=== PATIENT | male | born 1940 | race Caucasian/White ===

== ENCOUNTER 2016-08-21 11:06 | Inpatient (IN) | payer MEDICARE ==
[~2016-08-21] VITALS: Ht 177.8 cm; Wt 98.9 kg
[~2016-08-21 11:06] MED LIST: ACET325T9 PO; ALBU2.5V14 NEB; ALLO300T; AMIO100T4 PO; ASCO500T2 PO; ASPI81TA2 PO; ATOR20TA; AZIT250T PO; CHOL2000 PO; CHOL500021 PO; CIPR500T94 PO; Calcium; Dextrose 50 % In Water IV; FERR-26 PO; FLUT1DIS5; FURO-68 PO; FURO20TA3 PO; FURO40TA4; GLIM2TAB2 PO; GUAI600T38 PO; Guaifenesin/Dextromethorphan PO; INSU100I17 SQ; IPRA14.7; IPRA3AMP23; IRON1TAB PO; Ipratropium/Albuterol Sulfate NEB; LEVO75CA; LOSA25TA PO; METF100010; METF10002 PO; METF500T25; MONT10TA9 PO; MULT-246 PO; Morphine Sulfate SL; NEBI5TAB2; NEBI5TAB2 PO; OMEP20TA PO; OMEP40CA5; PANT40TA3 PO; POTA10TA5 PO; PRED-220 PO; PRED2.5T PO; PRED20TA PO; PRED50TA PO; PRED5TAB; RIVA15TA; ROFL500T; SPIR25TA3
[2016-08-21 11:35] VITALS: BP 156/76
[2016-08-21] MEDS ORDERED: ONDANSETRON PF 4 MG/2 ML VIAL. IV PRN (11:45)
[2016-08-21] MEDS ORDERED: ACETAMINOPHEN 325 MG TABLET PO PRN ×2 (11:45→12:45)
[2016-08-21 11:59] LABS: BASO # 0.1 x10^3/uL (0.0-0.2); BASO % 1 % (0-3); EOS # 0.1 x10^3/uL (0.0-0.7); EOS % 1 % (0-3); HEMATOCRIT 39.8 % (39.0-53.0); HEMOGLOBIN 12.9 g/dL (13.0-17.5); LYMPH # 0.6 x10^3/uL (1.0-4.8); LYMPH % 5 % (24-48); MEAN CORPUSCULAR HEMOGLOBIN 28 pg (25-35); MEAN CORPUSCULAR HGB CONC 32 g/dL (31-37); MEAN CORPUSCULAR VOLUME 87 fL (79-100); MONO # 0.6 x10^3/uL (0.0-1.1); MONO % 5 % (0-9); NEUT # 11.4 x10^3uL (1.8-7.7); NEUT % 89 % (31-73); PLATELET COUNT 190 x10^3/uL (140-400); RED BLOOD COUNT 4.59 x10^6/uL (4.30-5.70); WHITE BLOOD COUNT 12.8 x10^3/uL (4.0-11.0)
[2016-08-21] MEDS ORDERED: CALC-98 PO (11:59)
[2016-08-21] MEDS ORDERED: ASCO10002 PO (11:59)
[2016-08-21] MEDS ORDERED: IPRATRPIUM/ALBUTEROL 0.5/2.5MG 3 ML NEBU. NEB SCH (12:00)
[2016-08-21] MEDS ORDERED: SACU1TAB PO (12:00)
[2016-08-21] MEDS ORDERED: FERR-26 PO (12:18)
[2016-08-21 12:34] LABS: ALBUMIN/GLOBULIN RATIO 0.7 (1.0-1.7); CALCIUM 9.2 mg/dL (8.5-10.1); CREATININE 1.2 mg/dL (0.7-1.3); MAGNESIUM 1.5 mg/dL (1.8-2.4); POTASSIUM 4.1 mmol/L (3.5-5.1); TOTAL BILIRUBIN 0.7 mg/dL (0.2-1.0); TOTAL PROTEIN 7.2 g/dL (6.4-8.2)
[2016-08-21] MEDS: FUROSEMIDE 40 MG/4 ML VIAL IVP SCH ×2 (12:49→19:28)
[2016-08-21 14:45] VITALS: BP 135/71
[2016-08-21] MEDS ORDERED: ALBUTEROL SULFATE 2.5 MG/3 ML NEBU. NEB PRN (15:30)
--- NOTE | 2016-08-21 16:03 | RAD ---
EXAM: Chest, 2 views. HISTORY: Shortness of breath. COMPARISON: 02/04/2016. FINDINGS: Frontal and lateral views of the chest are obtained. There is increased lower lobe predominant interstitial opacity, similar compared to the prior study. There is no consolidation, effusion or pneumothorax. There is blunting of the right costophrenic angle likely due to pleural parenchymal scarring. There is mild cardiomegaly. There is a cardiac pacemaker defibrillator in expected position.. IMPRESSION: 1. Diffuse lower lobe predominant increased interstitial opacity, similar compared to the prior study. This may be due to chronic interstitial change or interstitial infiltrate. 2. Mild cardiomegaly.
[2016-08-21] MEDS: IPRATRPIUM/ALBUTEROL 0.5/2.5MG 3 ML NEBU. NEB SCH ×2 (16:32→19:46)
--- NOTE | 2016-08-21 16:38 | HP ---
ADMIT DATE: 08/21/2016 HISTORY OF PRESENT ILLNESS: The patient is a 76-year-old male patient, who was admitted directly from the cardiology team for treatment of his community-acquired pneumonia as well as congestive heart failure exacerbation. On questioning him, he apparently has been having recurrent episode of cough, orthopnea, worsening shortness of breath on minimal exertion. He has also productive sputum with dark color sputum. He could not say whether this is yellow or green. Denied any chest pain, denied any chills, rigors or fever. He stated that he was treated by his shoe clerk with short course of Zithromax that helped to improve his symptoms; however, symptoms came back again once he stopped the antibiotic. When I examined him this morning, he looked well and was clearly in no apparent respiratory distress. On questioning him on arrival to the hospital, he stated that he has been unable to do anything, become extremely short of breath on minimal exertion. PAST MEDICAL HISTORY: Significant for paroxysmal atrial fibrillation, congestive heart failure, chronic obstructive pulmonary disease, on home oxygen at 2 liters oxygen by nasal cannula, type 2 diabetes mellitus, recurrent GI bleed, source of which is unknown. He has been on Xarelto that was discontinued. He has coronary artery disease, status post myocardial infarction, hyperlipidemia, hypertension, peptic ulcer disease, severe iron deficiency anemia, requiring multiple blood transfusions, chronic respiratory failure, hypothyroidism, nonischemic cardiomyopathy, pulmonary hypertension, gouty arthritis. PAST SURGICAL HISTORY: Significant for placement of an AICD. FAMILY HISTORY: Unremarkable. SOCIAL HISTORY: He is retired. He lives at home. He has a large extended family. He quit tobacco in 2013. He does not drink alcohol or use any recreational drugs. ALLERGIES: He is allergic to PENICILLIN, TUBERCULIN TEST and PURIFIED PROTEIN DERIVATIVES. MEDICATIONS: He is on following medications: He is on Tylenol 650 mg every 6 hours, allopurinol 300 mg once a day, ascorbic acid 1000 mg daily, aspirin 81 mg once a day, calcium carbonate with vitamin D 1 tablet daily, ferrous sulfate 325 mg p.o. b.i.d., Flonase, fluticasone/salmeterol 500/50 one puff b.i.d., glimepiride 2 mg daily, is on guaifenesin 600 mg extended release twice a day, ipratropium bromide, albuterol inhaler, Combivent 2 puffs twice a day. He is on levothyroxine sodium 75 mcg once a day, metformin 500 mg 1 tablet with dinner, metformin 1000 mg daily with breakfast, montelukast sodium Singulair 10 mg at bedtime, multivitamin 1 tablet once a day, nebivolol 2.5 mg once a day, omeprazole 40 mg daily, potassium chloride 10 mEq p.o. daily. He is on prednisone 10 mg daily, primidone 50 mg daily. He is on 25/26 mg 1 tablet twice a day. He is on DuoNeb 3 mL every 8 hours. REVIEW OF SYSTEMS: As per history of present illness. PHYSICAL EXAMINATION GENERAL: When I examined him, he was resting, slightly propped up in bed, in no apparent respiratory distress. He was somewhat flushed, but no pallor, jaundice, cyanosis or thyromegaly. No jugular venous distention. No limb edema. VITAL SIGNS: His heart rate was 80, blood pressure was 156/76, temperature was 98, respiratory rate was 28 and oxygen saturation was 94% on 3 liters of oxygen by nasal cannula. HEAD, EYES, EARS, NOSE AND THROAT: Showed normocephalic, atraumatic. NECK: Supple. HEART: Showed normal first and second heart sounds with no gallop, rub or murmur. CHEST: Clear to auscultation. He has few scattered rhonchi. I could not appreciate any crepitation. ABDOMEN: Distended, soft, nontender. No guarding or rigidity. No organomegaly. All hernial orifices intact. Bowel sounds normal. NEUROLOGIC: He was awake, alert, responding appropriately. Cranial nerves intact. EXTREMITIES: He moves extremities without difficulty, ambulates without assistance or assistive devices. LABORATORY DATA: Showed a white cell count of 12,800, hemoglobin 12.9, hematocrit 39.8, MCV 87 and platelet count of 190,000 with normal manual differential showed 89% polymorphs, 5% lymphocytes, and monocytes. Serum sodium was 144, potassium 4.1, chloride 104, bicarbonate 33, anion gap of 7, BUN 10, creatinine 1.2, estimated GFR was 59 mL per minute. His glucose was 183, calcium was 9.2, magnesium was 1.5. Total bilirubin, AST, ALT, alkaline phosphatase were normal. Total beta natriuretic peptide was 1632. Total protein was 7.2, albumin 3. He did have a chest x-ray, which showed that he has obviously cardiomegaly and AICD in place. He has also some infiltrate in his left lower lobe in the retrocardiac area. IMPRESSION: In summary, this is a 76-year-old male patient, who came in as a direct admit from his shoe clerk with acute on chronic congestive heart failure, community-acquired pneumonia and chronic obstructive pulmonary disease exacerbation. PLAN: My plan is to obviously we will start him on IV antibiotic, IV Solu-Medrol, nebulized treatment. We will continue with most of his other home medications and will consult the cardiology team to assist with management of his acute on chronic congestive heart failure. JOHNATHAN MCKEON MD DR: CRISTIANE/rhianna JOB#: [id number] / [id number]
[2016-08-21] MEDS: METFORMIN 500 MG TABLET. PO SCH (16:51)
[2016-08-21 19:34] VITALS: BP 130/84
[2016-08-21] MEDS: GUAIFENESIN ER 600 MG TABLET.ER PO SCH (20:28)
[2016-08-21] MEDS: METOPROLOL TART IMMED RELEASE 25 MG TABLET PO SCH (20:28)
[2016-08-21] MEDS: MONTELUKAST 10 MG TABLET. PO SCH (20:28)
[2016-08-21] MEDS: FERROUS SULFATE 325 MG TABLET PO SCH (20:28)
[2016-08-21] MEDS: ASPIRIN 81 MG TAB.CHEW PO SCH (20:29)
[2016-08-21] MEDS: methylPREDNISolone SOD SUCC PF 40 MG/ML VIAL. IV SCH (20:29)
[2016-08-21] MEDS: POTASSIUM CHLORIDE 10 MEQ CAPSULE.ER. PO SCH (20:29)
[2016-08-21] MEDS: CIPROFLOXACIN 400MG PREMIX 200 ML IV SCH (20:32)
[2016-08-21] MEDS: SACUBITRIL/VALSARTAN 24/26MG TABLET. PO SCH (20:33)
--- NOTE | 2016-08-21 21:07 | EKG ---
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 : 1940 Requested By: JESSY KELSEY Order Number: [id number] Reading MD: Measurements Intervals Hawks Rate: 87 P: AK: QRS: -108 QRSD: 146 T: 67 QT: 416 QTc: 501 Interpretive Statements ATRIAL FIBRILLATION VENTRICULAR PREMATURE COMPLEX(ES) ABNORMAL RIGHT SUPERIOR AXIS DEVIATION NON SPECIFIC INTRAVENTRICULAR BLOCK RVH WITH REPOLARIZATION ABNORMALITY QRS(T) CONTOUR ABNORMALITY CONSIDER ANTEROSEPTAL MYOCARDIAL DAMAGE CONSISTENT WITH INFERIOR INFARCT POSSIBLY RECENT RI6.01 Unconfirmed report Compared to ECG 02/02/2016 10:29:53 Right superior axis now present Left-axis deviation no longer present Right bundle-branch block no longer present Myocardial infarct finding still present
[2016-08-21 23:05] VITALS: BP 137/77
[2016-08-22] MEDS: methylPREDNISolone SOD SUCC PF 40 MG/ML VIAL. IV SCH ×3 (05:03→21:09)
[2016-08-22 05:06] VITALS: BP 123/80
[2016-08-22] MEDS: IPRATRPIUM/ALBUTEROL 0.5/2.5MG 3 ML NEBU. NEB SCH ×4 (05:48→21:51)
[2016-08-22 06:31] LABS: HEMOGLOBIN 13.9 g/dL (13.0-17.5); RED BLOOD COUNT 4.86 x10^6/uL (4.30-5.70); RED CELL DISTRIBUTION WIDTH 16.1 % (11.5-14.5); WHITE BLOOD COUNT 9.2 x10^3/uL (4.0-11.0)
[2016-08-22 06:44] LABS: ALBUMIN 3.2 g/dL (3.4-5.0); ALBUMIN/GLOBULIN RATIO 0.7 (1.0-1.7); CALCIUM 9.5 mg/dL (8.5-10.1); CREATININE 1.3 mg/dL (0.7-1.3); GFR 53.8; POTASSIUM 4.7 mmol/L (3.5-5.1); TOTAL BILIRUBIN 0.9 mg/dL (0.2-1.0); TOTAL PROTEIN 8.1 g/dL (6.4-8.2)
[2016-08-22] MEDS: CIPROFLOXACIN 400MG PREMIX 200 ML IV SCH ×2 (08:25→21:09)
[2016-08-22] MEDS: METFORMIN 500 MG TABLET. PO SCH ×2 (08:26→17:14)
[2016-08-22] MEDS: GLIMEPIRIDE 2 MG TABLET PO SCH (08:26)
[2016-08-22] MEDS: FUROSEMIDE 40 MG/4 ML VIAL IVP SCH ×2 (08:26→13:27)
[2016-08-22] MEDS: ALLOPURINOL 300 MG TABLET. PO SCH (08:26)
[2016-08-22] MEDS: CALCIUM CARB/VIT D3 500/200 TABLET PO SCH (08:27)
[2016-08-22] MEDS: FERROUS SULFATE 325 MG TABLET PO SCH ×2 (08:27→21:08)
[2016-08-22] MEDS: GUAIFENESIN ER 600 MG TABLET.ER PO SCH ×2 (08:27→21:05)
[2016-08-22] MEDS: METOPROLOL TART IMMED RELEASE 25 MG TABLET PO SCH (08:27)
[2016-08-22] MEDS: PANTOPRAZOLE 40 MG TABLET. PO SCH (08:27)
[2016-08-22 08:34] VITALS: BP 144/62
[2016-08-22] MEDS: SACUBITRIL/VALSARTAN 24/26MG TABLET. PO SCH ×2 (08:34→21:08)
--- NOTE | 2016-08-22 09:20 | PDOC2 ---
JESSY KELSEY [employer]OCKTA[employer]OUNGE MANAGER 08/22/16 0920: CONSULT Date of Admission DATE: 08/22/16 TIME: 09:13 Reason for Consult: CHF History of Present Illness The patient is a pleasant 76-year-old male who is well known to our service. He has history of chronic systolic and diastolic congestive heart failure due to non-ischemic dilated cardiomyopathy as well as paroxysmal atrial fibrillation , hypertension, and hypercholesterolemia. Yesterday he presented to OP clinic with progressive shortness of breath and hypertension. Over the last two months he has been progressively short of air and wheezing. Cough+ Took a Zpacks last month that helped for a few days. His weight is up nearly 30 pounds and he is +PND and orthopnea. His breathing is short at rest and with any activity. He wears his Trilogy Cpap Machine at night. He denies any chest discomfort. He denies any palpitations, lightheadedness, syncope, or lower extremity edema. He denies any nausea, vomiting, or diarrhea. PAST MEDICAL HISTORY: Non-ischemic dilated cardiomyopathy, chronic systolic and diastolic congestive heart failure with previous decompensations, hypertension, hypercholesterolemia, severe chronic obstructive pulmonary disease, on home oxygen; atrial fibrillation, paroxysmal; and history of recurrent gastrointestinal hemorrhage, source unknown. He had been on Xarelto in the past, but this had to be discontinued due to the recurrent gastrointestinal hemorrhage; iron-deficiency anemia due to the recurrent gastrointestinal hemorrhage, permanent internal cardioverter defibrillator placement, moderate pulmonary hypertension, type 2 diabetes mellitus, gouty arthritis, acquired hypothyroidism. PAST SURGICAL HISTORY: Status post internal cardioverter defibrillator placement. SOCIAL HISTORY: The patient lives at home with his . He quit smoking years ago. He denies any significant alcohol intake. FAMILY HISTORY: The patient denies any family history of premature coronary artery disease. REVIEW OF SYSTEMS: Review of 10 organ systems is as per the history of present illness, otherwise negative. ALLERGIES: Penicillin and PPD. PHYSICAL EXAMINATION: GENERAL: The patient is awake and alert. He appears to be in mild respiratory distress with trouble breathing when speaking. He appears well-nourished and appears his stated age. HEAD AND NECK: The patient is normocephalic and atraumatic. Carotid pulsations are 2/2 bilaterally without bruits. Jugular venous pressure does not appear elevated. No thyromegaly appreciated. EYES: Conjunctivae are clear. Extraocular movements are intact. There is no xanthelasma. LUNGS: Labored breathing with wheezes and coarse CARDIOVASCULAR: Regular rate and rhythm although at times irregular with a normal S1 and S2. ABDOMEN: There are normal bowel sounds and the abdomen is soft, nontender, and nondistended. EXTREMITIES: Lower extremities, there is no edema. The posterior tibial pulses are palpable bilaterally. SKIN: There is normal skin turgor. There is + pallor. MUSCULOSKELETAL: I did not appreciate scoliosis or kyphosis. NEUROLOGICAL: The patient is alert and oriented x3. Cranial nerves III through XII are grossly intact. The patient has good motor tone and strength in the upper and lower extremities bilaterally. PSYCHOLOGIC: The patient is pleasant and has normal affect. ELECTROCARDIOGRAM: Sinus rhythm with a dual-chamber pacemaker with atrial sensing and ventricular pacing. ECHOCARDIOGRAM 07/25/15 Technically difficult study. The left ventricle is normal size. Left ventricle systolic function is moderately to severely impaired. The Ejection Fraction is 30-35% with global hypokinesis. There is no significant aortic valvular stenosis. Doppler and Color Flow revealed no significant aortic regurgitation. Doppler and Color Flow revealed mild mitral regurgitation. Doppler and Color Flow revealed mild tricuspid regurgitation. The PA pressure was estimated at 33 mmHg. There is no evidence of significant pericardial effusion. ECHOCARDIOGRAM IMPRESSION (09/21/14): Borderline to mild concentric left ventricular hypertrophy. Ejection Fraction is 45%. Systolic function is mildly impaired. Mild to moderate hypokinesis in the base to mid posterior wall. Left atrium is mildly dilated. Right atrium is mildly dilated. Aortic valve is mildly sclerotic. Moderate mitral regurgitation. Mild-moderate pulmonary hypertension. PA pressure was estimated at 48 mmHg. CARDIAC CATHETERIZATION IMPRESSION (09/07/2013): No significant coronary artery disease with minor luminal irregularities. Severe Left jugular dysfunction with ejection fraction of 30%. Biventricular AICD noted. Assessment and Plan Acute on chronic - Congestive heart failure, combined systolic and diastolic, with ejection fraction of 40%, Non ischemic cardiomyopathy. On Bystolic (did not tolerate Coreg - dyspnea) and Entresto. Continue IV lasix. Pneumonia - ABx, Nebs, Steroids and oxygen supplement Coronary artery disease. Mild by catheterization in 2013. The patient is doing well without any angina. We will continue optimal medical therapy. Atrial fibrillation, with controlled rate s/p AV lester ablation and BIV/AICD placement. Pt was taken off Xarelto for severe anemia, GI losses, repeated transfusions. Continue aspirin and beta nilsa. CKD stage II - III - stable Dyspnea, multifactorial - Chronic Respiratory failure, Pneumonia, COPD, and CHF. Respiratory failure - COPD, O2 Dependent - Wearing Trilogy nightly Anemia of chronic disease - now at normal. History of Code - Ventricular tachycardia converted with AICD discharge. Continue Amiodarone Current Medications Current Medications Acetaminophen (Tylenol) 650 mg PRN Q6HRS PRN PO Headaches, Temp > 101.5F; Start 08/21/16 at 11:45; Stop 08/21/16 at 13:10; Status DC Ondansetron HCl (Zofran) 4 mg PRN Q8HRS PRN IV NAUSEA/VOMITING; Start 08/21/16 at 11:45 Albuterol/ Ipratropium (Duoneb) 3 ml RTQID NEB ; Start 08/21/16 at 12:00; Stop 08/21/16 at 16:19; Status DC Furosemide (Lasix) 40 mg BID IVP Last administered on 08/21/16 19:28; Start at 13:00; Stop 08/22/16 at 08:07; Status DC Acetaminophen (Tylenol) 650 mg PRN Q6HRS PRN PO PAIN; Start 08/21/16 at 12:45 Allopurinol (Zyloprim) 300 mg DAILY PO Last administered on 08/22/16 08:26; Start 08/22/16 at 09:00 Aspirin (Children'S Aspirin) 81 mg QHS PO Last administered on 08/21/16 20:29 ; Start 08/21/16 at 21:00 Ferrous Sulfate (Feosol) 325 mg BID PO Last administered on 08/22/16 08:27; Start 08/21/16 at 21:00 Glimepiride (Amaryl) 2 mg DAILY PO Last administered on 08/22/16 08:26; Start 08/22/16 at 09:00 Guaifenesin (Mucinex Er) 600 mg BID PO Last administered on 08/22/16 08:27; Start 08/21/16 at 21:00 Montelukast Sodium (Singulair) 10 mg QHS PO Last administered on 08/21/16 20: 28; Start 08/21/16 at 21:00 Sacubitril/ Valsartan (Entresto 24 Mg-26 Mg) 1 tab BID PO Last administered on 08/21/16 20:33; Start 08/21/16 at 21:00 Calcium/Vitamin D (Oscal D 500mg/ 200uts) 1 tab DAILY PO Last administered on 08:27; Start 08/22/16 at 09:00 Levothyroxine Sodium (Synthroid) 75 mcg 20 PO ; Start 08/22/16 at 20:00 Metformin HCl (Glucophage) 1,000 mg DAILY PO Last administered on 08/22/16 08: 26; Start 08/22/16 at 09:00 Metformin HCl (Glucophage) 500 mg DAILYBFRSUP PO Last administered on 16:51; Start 08/21/16 at 17:00 Pantoprazole Sodium (Protonix) 40 mg DAILY PO Last administered on 08/22/16 08 :27; Start 08/22/16 at 09:00 Potassium Chloride (Micro-K) 10 meq HS PO Last administered on 08/21/16 20:29 ; Start 08/21/16 at 21:00 Metoprolol Tartrate 12.5 mg 12.5 mg BID PO Last administered on 08/22/16 08:27 ; Start 08/21/16 at 21:00 Ciprofloxacin Lactate (Cipro 400mg Premix) 200 ml @ 200 mls/hr Q12HR IV Last administered on 08/22/16 08:25; Start 08/21/16 at 21:00 Methylprednisolone Sodium Succinate (Solu-Medrol 40mg Vial) 40 mg Q8HRS IV Last administered on 08/22/16 05:03; Start 08/21/16 at 22:00 Albuterol/ Ipratropium (Duoneb) 3 ml RTQID NEB Last administered on 08/22/16 05:48; Start 08/21/16 at 16:00 Albuterol Sulfate (Ventolin) 2.5 mg PRN Q2HR PRN NEB SHORTNESS OF BREATH; Start 08/21/16 at 15:30 Furosemide (Lasix) 40 mg BID94 IVP Last administered on 08/22/16 08:26; Start 08/22/16 at 09:00 Active Scripts Active Prednisone 50 Mg Tablet 1 Tab PO DAILY Montelukast Sodium Tablet (Montelukast Sodium) 10 Mg Tablet 10 Mg PO QHS [Ipratropium/Albuterol Sulfate] 3 ML Nebu 3 Ml NEB Q8HRS Reported Ferrous Sulfate 325 Mg Tablet 1 Tab PO BID Entresto 24 mg-26 mg Tablet (Sacubitril/Valsartan) 1 Each Tablet 1 Each PO BID Calcium + Vitamin D Tablet (Calcium Carbonate/Vitamin D3) 1 Each Tablet 1 Each PO DAILY Vitamin C (Ascorbic Acid) 1,000 Mg Tablet 1,000 Mg PO DAILY Prednisone 10 Mg Tablet 10 Mg PO DAILY 40mg for 2 days 30mg for 2 days then 20mg dose daily as maintenance dosage Mucinex (Guaifenesin) 600 Mg Tablet.er 600 Mg PO BID LAST DOSE: TODAY AM NEXT DOSE: TON PM Multi-Vitamin Daily (Multivitamin) 1 Each Tablet 2 Each PO DAILY LAST DOSE: TODAY AM NEXT DOSE: TOMORROW AM Glimepiride 2 Mg Tablet 2 Mg PO DAILY LAST DOSE: TODAY AM NEXT DOSE: TOMORROW AM Omeprazole 20 Mg Tablet.dr 40 Mg PO DAILY LAST DOSE: TODAY AM NEXT DOSE: TOMORROW AM BEFORE BREAKFAST Klor-Con 10 (Potassium Chloride) 10 Meq Tablet.er 10 Meq PO HS LAST DOSE: YESTERDAY PM NEXT DOSE: TON PM Bystolic (Nebivolol Hcl) 5 Mg Tablet 2.5 Mg PO HS LAST DOSE: YESTER PM NEXT DOSE: TONIG PM Aspirin 81 Mg Tab.chew 81 Mg PO QHS LAST DOSE; TODAY AM NEXT DOSE; TOMORROW AM Tylenol (Acetaminophen) 325 Mg Tablet 650 Mg PO Q6HRS PRN LAST DOSE; NEXT DOSE; IF NEEDED Metformin Hcl 1,000 Mg Tablet 1,000 Mg PO DAILYWBKFT LAST DOSE; TODAY BEFORE BREAKFAST NEXT DOSE; TOMORROW BEFORE BREAKFAST Metformin Hcl Er (Metformin Hcl) 500 Mg Tab.er.24 1 Tab WITH DINNER LAST DOSE; YESTERDAY WITH DINNER NEXT DOSE; TODAY WITH DINNER Tirosint (Levothyroxine Sodium) 75 Mcg Capsule 1 Tab HS LAST DOSE; TODAY AM NEXT DOSE; TOMORROW AM BEFORE BREAKFAST Combivent Inhaler (Ipratropium/Albuterol Sulfate) 14.7 Gm Aer.w.adap 2 Puff BID LAST DOSE; TODAY AM NEXT DOSE; TODAY PM Advair 500-50 Diskus (Fluticasone/Salmeterol) 1 Each Disk.w.dev 1 Puff BID LAST DOSE; TODAY AM NEXT DOSE; TODAY PM Allopurinol 300 Mg Tablet 1 Tab DAILY Allergies: Coded Allergies: Penicillins (Verified Allergy, Intermediate, rash, 06/07/14) tuberculin, purified protein deriva (Verified Allergy, Intermediate, swell , 06/07/14) VITALS Vital Signs Date Time Temp Pulse Resp B/P Pulse Ox O2 Delivery O2 Flow Rate FiO2 08/22/16 08:34 98.5 81 18 144/62 95 Room Air 08/22/16 05:48 3.0 Labs Laboratory Tests Test 08/21/16 11:45 08/21/16 12:05 08/22/16 05:49 White Blood Count 12.8x10^3/uL (4.0-11.0) 9.2x10^3/uL (4.0-11.0) Red Blood Count 4.59x10^6/uL (4.30-5.70) 4.86x10^6/uL (4.30-5.70) Hemoglobin 12.9g/dL (13.0-17.5) 13.9g/dL (13.0-17.5) Hematocrit 39.8% (39.0-53.0) 42.0% (39.0-53.0) Mean Corpuscular Volume 87fL (79-100) 86fL (79-100) Mean Corpuscular Hemoglobin 28pg (25-35) 29pg (25-35) Mean Corpuscular Hemoglobin Concent 32g/dL (31-37) 33g/dL (31-37) Red Cell Distribution Width 16.0% (11.5-14.5) 16.1% (11.5-14.5) Platelet Count 190x10^3/uL (140-400) 217x10^3/uL (140-400) Neutrophils (%) (Auto) 89% (31-73) Lymphocytes (%) (Auto) 5% (24-48) Monocytes (%) (Auto) 5% (0-9) Eosinophils (%) (Auto) 1% (0-3) Basophils (%) (Auto) 1% (0-3) Neutrophils # (Auto) 11.4x10^3uL (1.8-7.7) Lymphocytes # (Auto) 0.6x10^3/uL (1.0-4.8) Monocytes # (Auto) 0.6x10^3/uL (0.0-1.1) Eosinophils # (Auto) 0.1x10^3/uL (0.0-0.7) Basophils # (Auto) 0.1x10^3/uL (0.0-0.2) Sodium Level 144mmol/L (136-145) 141mmol/L (136-145) Potassium Level 4.1mmol/L (3.5-5.1) 4.7mmol/L (3.5-5.1) Chloride Level 104mmol/L (98-107) 99mmol/L (98-107) Carbon Dioxide Level 33mmol/L (21-32) 36mmol/L (21-32) Anion Gap 7 (6-14) 6 (6-14) Blood Urea Nitrogen 10mg/dL (8-26) 17mg/dL (8-26) Creatinine 1.2mg/dL (0.7-1.3) 1.3mg/dL (0.7-1.3) Estimated GFR (Cockcroft-Gault) 59.0 53.8 BUN/Creatinine Ratio 8 (6-20) 13 (6-20) Glucose Level 183mg/dL (70-99) 196mg/dL (70-99) Calcium Level 9.2mg/dL (8.5-10.1) 9.5mg/dL (8.5-10.1) Magnesium Level 1.5mg/dL (1.8-2.4) Total Bilirubin 0.7mg/dL (0.2-1.0) 0.9mg/dL (0.2-1.0) Aspartate Amino Transf (AST/SGOT) 21U/L (15-37) 20U/L (15-37) Alanine Aminotransferase (ALT/SGPT) 34U/L (16-63) 35U/L (16-63) Alkaline Phosphatase 69U/L (46-116) 76U/L (46-116) Troponin I Quantitative 0.021ng/mL (0-0.055) UQ-Tye-R-Type Natriuretic Peptide 1632pg/mL (0-449) Total Protein 7.2g/dL (6.4-8.2) 8.1g/dL (6.4-8.2) Albumin 3.0g/dL (3.4-5.0) 3.2g/dL (3.4-5.0) Albumin/Globulin Ratio 0.7 (1.0-1.7) 0.7 (1.0-1.7) DIVYA ROMERO MD 08/22/16 0951: CONSULT Allergies: Coded Allergies: Penicillins (Verified Allergy, Intermediate, rash, 06/07/14) tuberculin, purified protein deriva (Verified Allergy, Intermediate, swell , 06/07/14) Assessment/Plan I have participated in the care of this patient and I have reviewed and agree with all pertinent clinical information above including history, exam, and recommendations. 76-year-old gentleman well known to our service in the with worsening shortness of breath for the last few weeks, pedal edema abdominal distention wheezing cough with expectoration. Since being diuresed yesterday he has felt better Constitutional: Well developed, well nourished, no acute distress, non-toxic appearance. HENT: Normocephalic, atraumatic, bilateral external ears normal, oropharynx moist, no oral exudates, nose normal. Eyes: KYLIE, EOMI, conjunctiva normal, no discharge. Neck: Normal range of motion, no tenderness, supple, no stridor. Cardiovascular: Normal first and second heart sounds. 2 x 6 ejection systolic murmur Thorax and Lungs: Severely diminished breath sounds bilaterally. There is expiratory wheezes Abdomen: Bowel sounds normal, soft, no tenderness, no masses, no pulsatile masses. Skin: Warm, dry, no erythema, no rash. Back: No tenderness, no CVA tenderness. Extremities: Intact distal pulses, no tenderness, no cyanosis, no clubbing, ROM intact, no edema. Neurologic: Alert and oriented X 3, normal motor function, normal sensory function, no focal deficits noted. Psychologic: Affect normal, judgement normal, mood normal. IMPRESSION Acute decompensated heart failure with reduced ejection fraction: Patient has a severe nonischemic cardiomyopathy. His proBNP was only mildly elevated to 1632. He may have had predominant right heart failure secondary to an acute exacerbation of his lung condition. He is improved diuretics, and we can continue the Lasix 40 mg IV twice a day. He has no edema right now he did There is some dietary noncompliance in the form of Pashto foods and processed meats. I have counseled him to restrict his salt between 1300 mg and 2000 mg COPD with acute exacerbation: He has history of being on chronic oxygen at 2 L. His chest shows severely diminished breath sounds and expiratory wheezes. He has been coughing up thick phlegm. His chest x-ray does not show any acute infiltrates but shows chronic interstitial opacities in the bases. He may have bronchitis or bronchiectasis. I'm asked him to touch base with his risk officer whom he has not seen for a long time. Persistent atrial fibrillation: His EKG shows atrial fibrillation. He is status post status post AV node ablation. He is on anticoagulation in view of his prior GI bleed. 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 Severe nonischemic cardiomyopathy: The patient is on metoprolol tartrate, visual change that to succinate. He is on Entresto. Coronary disease: Mild. There is no angina. His troponin is negative. Tobacco dependence in remission: He quit some years ago. Diabetes: Per primary care. Hypoalbuminemia: His albumin is 3.0-3.2. His nutrition will need to be addressed. Problems: JESSY KELSEY APRN Aug 22, 2016 09:20 DIVYA ROMERO MD Aug 22, 2016 09:51
[2016-08-22 10:28] VITALS: BP 121/73
[2016-08-22 14:18] VITALS: BP 111/67
[2016-08-22] MEDS ORDERED: DEXTROSE 50% 25 GM / 50ML DISP.SYRIN. IV PRN (15:00)
[2016-08-22] MEDS: INSULIN ASPART 300 UNITS/3 ML INSULN.PEN SQ SCH (16:30)
[2016-08-22 19:28] VITALS: BP 129/65
[2016-08-22] MEDS: POTASSIUM CHLORIDE 10 MEQ CAPSULE.ER. PO SCH (21:08)
[2016-08-22] MEDS: MONTELUKAST 10 MG TABLET. PO SCH (21:08)
[2016-08-22] MEDS: ASPIRIN 81 MG TAB.CHEW PO SCH (21:08)
[2016-08-22] MEDS: LEVOTHYROXINE 75 MCG TABLET PO SCH (21:08)
[2016-08-22 22:24] VITALS: BP 122/65
--- NOTE | 2016-08-22 23:57 | PN ---
DATE: 08/22/2016 SUBJECTIVE: The patient is resting, slightly propped up in bed, in no apparent distress. He is awake, alert, feeling generally much better. He said he lost about 11 pounds, has been up and about. Chest tightness is much less. PHYSICAL EXAMINATION: GENERAL: When I examined him, he looked well and was clearly in no apparent respiratory distress, pale, but not jaundiced, cyanosed. No lymphadenopathy or thyromegaly. No jugular venous distention. No limb edema. VITAL SIGNS: His heart rate was 79, blood pressure was 111/67, temperature was 97.8, respiratory rate was 20, and oxygen saturation was 95% on 3 liters of oxygen. HEAD, EYES, EARS, NOSE AND THROAT: Showed normocephalic, atraumatic. NECK: Supple. HEART: Showed normal first and second heart sounds with no gallop, rub or murmur. CHEST: Clear to auscultation. No crepitation or rhonchi. ABDOMEN: Distended, soft, nontender. No guarding or rigidity. No organomegaly. Hernial orifices intact. Bowel sounds normal. NEUROLOGIC: He was awake, alert, responding appropriately. Cranial nerves intact. He moves extremities without difficulty. He ambulates without assistance or assistive devices. His intake over the last 24-hour was 920, output was 2900. LABORATORY DATA: His lab work showed a serum sodium 141, potassium 4.7, chloride 99, bicarbonate 36, anion gap of 6, BUN 17, creatinine 1.3, estimated GFR was 54 mL per minute, his glucose was 96, calcium was 9.5. Total bilirubin, AST, ALT, alkaline phosphatase were normal. Total protein was 8.1. Albumin was 3.1. His white cell count was 9200, hemoglobin 13.9, hematocrit 42, MCV 86 and platelet count 217,000. ASSESSMENT: 1. Community-acquired pneumonia. 2. Chronic obstructive pulmonary disease exacerbation. 3. Acute decompensated heart failure, reduced ejection fraction. 4. Persistent atrial fibrillation. 5. Severe nonischemic cardiomyopathy. 6. Hypoalbuminemia. 7. Type 2 diabetes. 8. Tobacco dependence. PLAN: My plan is to continue with current plan of medication. His blood sugar is slightly high, so I will start him also on sliding scale insulin. I will repeat all his lab works tomorrow. JOHNATHAN MCKEON MD DR: Rosalio JOB#: [id number] / [id number]
[2016-08-23] MEDS: methylPREDNISolone SOD SUCC PF 40 MG/ML VIAL. IV SCH ×2 (05:31→14:06)
[2016-08-23] MEDS: IPRATRPIUM/ALBUTEROL 0.5/2.5MG 3 ML NEBU. NEB SCH ×4 (05:37→22:12)
[2016-08-23 05:59] VITALS: BP 130/68
[2016-08-23 06:43] LABS: CALCIUM 9.5 mg/dL (8.5-10.1); CREATININE 1.5 mg/dL (0.7-1.3); GFR 45.6
[2016-08-23] MEDS: INSULIN ASPART 300 UNITS/3 ML INSULN.PEN SQ SCH ×3 (08:03→16:30)
[2016-08-23] MEDS: CIPROFLOXACIN 400MG PREMIX 200 ML IV SCH ×2 (08:48→20:42)
[2016-08-23] MEDS: GLIMEPIRIDE 2 MG TABLET PO SCH (08:49)
[2016-08-23] MEDS: SACUBITRIL/VALSARTAN 24/26MG TABLET. PO SCH ×2 (08:49→20:42)
[2016-08-23] MEDS: GUAIFENESIN ER 600 MG TABLET.ER PO SCH ×2 (08:49→20:42)
[2016-08-23] MEDS: FUROSEMIDE 40 MG/4 ML VIAL IVP SCH ×2 (08:49→16:49)
[2016-08-23] MEDS: FERROUS SULFATE 325 MG TABLET PO SCH ×2 (08:50→20:42)
[2016-08-23] MEDS: PANTOPRAZOLE 40 MG TABLET. PO SCH (08:50)
[2016-08-23] MEDS: CALCIUM CARB/VIT D3 500/200 TABLET PO SCH (08:50)
[2016-08-23] MEDS: METOPROLOL SUCC 24HR ER 25 MG TAB.ER.24H. PO SCH (08:50)
[2016-08-23] MEDS: ALLOPURINOL 300 MG TABLET. PO SCH (08:50)
[2016-08-23] MEDS: METFORMIN 500 MG TABLET. PO SCH (08:50)
--- NOTE | 2016-08-23 09:17 | PDOC ---
PROGRESS NOTES Assessment CHF, acute on chronic, mixed type. Symptoms improving, but not back to his baseline. Continue with IV Lasix. Follow up chest x-ray today. Will need to watch creatinine closely. This is starting to trend upward. Atrial fibrillation, persistent. Continue beta nilsa for rate control and Aspirin for stroke prevention. He bled on Xarelto. Ischemic cardiomyopathy. EF 30-35%. Continue present medications. May need follow up echocardiogram if not done recently. We can do this in our office. CAD. He is not having angina. Continue Aspirin, beta nilsa, statin. COPD with acute exacerbation. Treatment per hospitalist. Problems: Subjective We are seeing him for CHF. S: Edema is almost gone. Abdominal distention much better. Still short of breath and with significant wheezing. Denies palpitation, syncope. Objective Vital Signs Date Time Temp Pulse Resp B/P Pulse Ox O2 Delivery O2 Flow Rate FiO2 08/23/16 08:50 82 130/68 08/23/16 05:59 97.4 20 97 Nasal Cannula 3.0 Intake and Output 08/23/16 07:00 Intake Total 1680 ml Output Total 3625 ml Balance -1945 ml Intake Oral 1280 ml IV Total 400 ml Output Urine Total 3625 ml Abdomen: Normal bowel sounds, Soft, No tenderness Heart: Regular rate, Normal S1, Normal S2, Other (2/6 systolic ejection murmur. ) Extremities: No clubbing, No cyanosis, Normal pulses, Other (Trace bilateral pretibial edema.) General: Alert, Oriented X3, Cooperative, No acute distress HEENT: Atraumatic, EOMI, Mucous membr. moist/pink Lungs: Normal air movement, Other (Diffuse wheezing.) Neck: Supple, No JVD, +2 carotid pulse wo bruit Neuro: Normal speech, Strength at 5/5 X4 ext, Normal tone, Cranial nerves 3-12 NL Psych/Mental Status: Mental status NL, Mood NL Skin: No rashes, No breakdown, No significant lesion Review of Relevant I have reviewed the following items dyana (where applicable) has been applied. Labs Laboratory Tests Test 08/21/16 11:45 08/21/16 12:05 08/22/16 05:49 08/22/16 11:35 White Blood Count 12.8x10^3/uL (4.0-11.0) 9.2x10^3/uL (4.0-11.0) Red Blood Count 4.59x10^6/uL (4.30-5.70) 4.86x10^6/uL (4.30-5.70) Hemoglobin 12.9g/dL (13.0-17.5) 13.9g/dL (13.0-17.5) Hematocrit 39.8% (39.0-53.0) 42.0% (39.0-53.0) Mean Corpuscular Volume 87fL (79-100) 86fL (79-100) Mean Corpuscular Hemoglobin 28pg (25-35) 29pg (25-35) Mean Corpuscular Hemoglobin Concent 32g/dL (31-37) 33g/dL (31-37) Red Cell Distribution Width 16.0% (11.5-14.5) 16.1% (11.5-14.5) Platelet Count 190x10^3/uL (140-400) 217x10^3/uL (140-400) Neutrophils (%) (Auto) 89% (31-73) Lymphocytes (%) (Auto) 5% (24-48) Monocytes (%) (Auto) 5% (0-9) Eosinophils (%) (Auto) 1% (0-3) Basophils (%) (Auto) 1% (0-3) Neutrophils # (Auto) 11.4x10^3uL (1.8-7.7) Lymphocytes # (Auto) 0.6x10^3/uL (1.0-4.8) Monocytes # (Auto) 0.6x10^3/uL (0.0-1.1) Eosinophils # (Auto) 0.1x10^3/uL (0.0-0.7) Basophils # (Auto) 0.1x10^3/uL (0.0-0.2) Sodium Level 144mmol/L (136-145) 141mmol/L (136-145) Potassium Level 4.1mmol/L (3.5-5.1) 4.7mmol/L (3.5-5.1) Chloride Level 104mmol/L (98-107) 99mmol/L (98-107) Carbon Dioxide Level 33mmol/L (21-32) 36mmol/L (21-32) Anion Gap 7 (6-14) 6 (6-14) Blood Urea Nitrogen 10mg/dL (8-26) 17mg/dL (8-26) Creatinine 1.2mg/dL (0.7-1.3) 1.3mg/dL (0.7-1.3) Estimated GFR (Cockcroft-Gault) 59.0 53.8 BUN/Creatinine Ratio 8 (6-20) 13 (6-20) Glucose Level 183mg/dL (70-99) 196mg/dL (70-99) Calcium Level 9.2mg/dL (8.5-10.1) 9.5mg/dL (8.5-10.1) Magnesium Level 1.5mg/dL (1.8-2.4) Total Bilirubin 0.7mg/dL (0.2-1.0) 0.9mg/dL (0.2-1.0) Aspartate Amino Transf (AST/SGOT) 21U/L (15-37) 20U/L (15-37) Alanine Aminotransferase (ALT/SGPT) 34U/L (16-63) 35U/L (16-63) Alkaline Phosphatase 69U/L (46-116) 76U/L (46-116) Troponin I Quantitative 0.021ng/mL (0-0.055) HW-Kxx-S-Type Natriuretic Peptide 1632pg/mL (0-449) Total Protein 7.2g/dL (6.4-8.2) 8.1g/dL (6.4-8.2) Albumin 3.0g/dL (3.4-5.0) 3.2g/dL (3.4-5.0) Albumin/Globulin Ratio 0.7 (1.0-1.7) 0.7 (1.0-1.7) Glucose (Fingerstick) 259mg/dL (70-99) Test 08/22/16 16:45 08/22/16 21:12 08/23/16 06:03 08/23/16 07:43 Glucose (Fingerstick) 141mg/dL (70-99) 258mg/dL (70-99) 184mg/dL (70-99) Sodium Level 141mmol/L (136-145) Potassium Level 4.0mmol/L (3.5-5.1) Chloride Level 99mmol/L (98-107) Carbon Dioxide Level 35mmol/L (21-32) Anion Gap 7 (6-14) Blood Urea Nitrogen 34mg/dL (8-26) Creatinine 1.5mg/dL (0.7-1.3) Estimated GFR (Cockcroft-Gault) 45.6 Glucose Level 186mg/dL (70-99) Calcium Level 9.5mg/dL (8.5-10.1) Microbiology 08/21/16 Blood Culture - Preliminary, Resulted NO GROWTH AFTER 1 DAY 08/21/16 Gram Stain - Final, Complete Medications Current Medications Acetaminophen (Tylenol) 650 mg PRN Q6HRS PRN PO Headaches, Temp > 101.5F; Start 08/21/16 at 11:45; Stop 08/21/16 at 13:10; Status DC Ondansetron HCl (Zofran) 4 mg PRN Q8HRS PRN IV NAUSEA/VOMITING; Start 08/21/16 at 11:45 Albuterol/ Ipratropium (Duoneb) 3 ml RTQID NEB ; Start 08/21/16 at 12:00; Stop 08/21/16 at 16:19; Status DC Furosemide (Lasix) 40 mg BID IVP Last administered on 08/21/16 19:28; Start at 13:00; Stop 08/22/16 at 08:07; Status DC Acetaminophen (Tylenol) 650 mg PRN Q6HRS PRN PO PAIN; Start 08/21/16 at 12:45 Allopurinol (Zyloprim) 300 mg DAILY PO Last administered on 08/23/16 08:50; Start 08/22/16 at 09:00 Aspirin (Children'S Aspirin) 81 mg QHS PO Last administered on 08/22/16 21:08 ; Start 08/21/16 at 21:00 Ferrous Sulfate (Feosol) 325 mg BID PO Last administered on 08/23/16 08:50; Start 08/21/16 at 21:00 Glimepiride (Amaryl) 2 mg DAILY PO Last administered on 08/23/16 08:49; Start 08/22/16 at 09:00 Guaifenesin (Mucinex Er) 600 mg BID PO Last administered on 08/23/16 08:49; Start 08/21/16 at 21:00 Montelukast Sodium (Singulair) 10 mg QHS PO Last administered on 08/22/16 21: 08; Start 08/21/16 at 21:00 Sacubitril/ Valsartan (Entresto 24 Mg-26 Mg) 1 tab BID PO Last administered on 08/23/16 08:49; Start 08/21/16 at 21:00 Calcium/Vitamin D (Oscal D 500mg/ 200uts) 1 tab DAILY PO Last administered on 08:50; Start 08/22/16 at 09:00 Levothyroxine Sodium (Synthroid) 75 mcg 20 PO Last administered on 08/22/16 21 :08; Start 08/22/16 at 20:00 Metformin HCl (Glucophage) 1,000 mg DAILY PO Last administered on 08/23/16 08: 50; Start 08/22/16 at 09:00 Metformin HCl (Glucophage) 500 mg DAILYBFRSUP PO Last administered on 17:14; Start 08/21/16 at 17:00 Pantoprazole Sodium (Protonix) 40 mg DAILY PO Last administered on 08/23/16 08 :50; Start 08/22/16 at 09:00 Potassium Chloride (Micro-K) 10 meq HS PO Last administered on 08/22/16 21:08 ; Start 08/21/16 at 21:00 Metoprolol Tartrate 12.5 mg 12.5 mg BID PO Last administered on 08/22/16 08:27 ; Start 08/21/16 at 21:00; Stop 08/22/16 at 13:18; Status DC Ciprofloxacin Lactate (Cipro 400mg Premix) 200 ml @ 200 mls/hr Q12HR IV Last administered on 08/23/16 08:48; Start 08/21/16 at 21:00 Methylprednisolone Sodium Succinate (Solu-Medrol 40mg Vial) 40 mg Q8HRS IV Last administered on 08/23/16 05:31; Start 08/21/16 at 22:00 Albuterol/ Ipratropium (Duoneb) 3 ml RTQID NEB Last administered on 08/23/16 05:37; Start 08/21/16 at 16:00 Albuterol Sulfate (Ventolin) 2.5 mg PRN Q2HR PRN NEB SHORTNESS OF BREATH; Start 08/21/16 at 15:30 Furosemide (Lasix) 40 mg BID94 IVP Last administered on 08/23/16 08:49; Start 08/22/16 at 09:00 Metoprolol Succinate (Toprol Xl) 25 mg DAILY PO Last administered on 08/23/16 08:50; Start 08/23/16 at 09:00 Insulin Aspart (Novolog) 0-7 UNITS TIDAC SQ Last administered on 08/23/16 08: 03; Start 08/22/16 at 16:30 Dextrose 12.5 gm PRN Q15MIN PRN IV SEE COMMENTS; Start 08/22/16 at 15:00 Active Scripts Active Prednisone 50 Mg Tablet 1 Tab PO DAILY Montelukast Sodium Tablet (Montelukast Sodium) 10 Mg Tablet 10 Mg PO QHS [Ipratropium/Albuterol Sulfate] 3 ML Nebu 3 Ml NEB Q8HRS Reported Ferrous Sulfate 325 Mg Tablet 1 Tab PO BID Entresto 24 mg-26 mg Tablet (Sacubitril/Valsartan) 1 Each Tablet 1 Each PO BID Calcium + Vitamin D Tablet (Calcium Carbonate/Vitamin D3) 1 Each Tablet 1 Each PO DAILY Vitamin C (Ascorbic Acid) 1,000 Mg Tablet 1,000 Mg PO DAILY Prednisone 10 Mg Tablet 10 Mg PO DAILY 40mg for 2 days 30mg for 2 days then 20mg dose daily as maintenance dosage Mucinex (Guaifenesin) 600 Mg Tablet.er 600 Mg PO BID LAST DOSE: TODAY AM NEXT DOSE: TON PM Multi-Vitamin Daily (Multivitamin) 1 Each Tablet 2 Each PO DAILY LAST DOSE: TODAY AM NEXT DOSE: TOMORROW AM Glimepiride 2 Mg Tablet 2 Mg PO DAILY LAST DOSE: TODAY AM NEXT DOSE: TOMORROW AM Omeprazole 20 Mg Tablet.dr 40 Mg PO DAILY LAST DOSE: TODAY AM NEXT DOSE: TOMORROW AM BEFORE BREAKFAST Klor-Con 10 (Potassium Chloride) 10 Meq Tablet.er 10 Meq PO HS LAST DOSE: YESTERDAY PM NEXT DOSE: TON PM Bystolic (Nebivolol Hcl) 5 Mg Tablet 2.5 Mg PO HS LAST DOSE: YESTERDAY PM NEXT DOSE: TONIGTH PM Aspirin 81 Mg Tab.chew 81 Mg PO QHS LAST DOSE; TODAY AM NEXT DOSE; TOMORROW AM Tylenol (Acetaminophen) 325 Mg Tablet 650 Mg PO Q6HRS PRN LAST DOSE; NEXT DOSE; IF NEEDED Metformin Hcl 1,000 Mg Tablet 1,000 Mg PO DAILYWBKFT LAST DOSE; TODAY BEFORE BREAKFAST NEXT DOSE; TOMORROW BEFORE BREAKFAST Metformin Hcl Er (Metformin Hcl) 500 Mg Tab.er.24 1 Tab WITH DINNER LAST DOSE; YESTERDAY WITH DINNER NEXT DOSE; TODAY WITH DINNER Tirosint (Levothyroxine Sodium) 75 Mcg Capsule 1 Tab HS LAST DOSE; TODAY AM NEXT DOSE; TOMORROW AM BEFORE BREAKFAST Combivent Inhaler (Ipratropium/Albuterol Sulfate) 14.7 Gm Aer.w.adap 2 Puff BID LAST DOSE; TODAY AM NEXT DOSE; TODAY PM Advair 500-50 Diskus (Fluticasone/Salmeterol) 1 Each Disk.w.dev 1 Puff BID LAST DOSE; TODAY AM NEXT DOSE; TODAY PM Allopurinol 300 Mg Tablet 1 Tab DAILY Vitals/I & O Vital Sign - Last 24 Hours 08/22/16 08/22/16 08/22/16 08/22/16 09:21 10:28 11:01 14:18 Temp 97.7 97.8 Pulse 81 79 Resp 22 20 B/P 121/73 111/67 Pulse Ox 95 95 95 O2 Delivery Nasal Cannula Nasal Cannula Nasal Cannula Nasal Cannula O2 Flow Rate 3.0 3.0 3.0 3.0 08/22/16 08/22/16 08/22/16 08/22/16 15:51 19:28 20:00 21:08 Temp 97.5 Pulse 81 81 Resp 20 B/P 129/65 129/65 Pulse Ox 97 96 O2 Delivery Nasal Cannula Nasal Cannula Nasal Cannula O2 Flow Rate 3.0 3.0 3.0 08/22/16 08/22/16 08/23/16 08/23/16 21:51 22:24 05:39 05:59 Temp 98.0 97.4 Pulse 80 82 Resp 20 20 B/P 122/65 130/68 Pulse Ox 97 95 96 97 O2 Delivery Nasal Cannula Nasal Cannula Nasal Cannula Nasal Cannula O2 Flow Rate 3.0 3.0 3.0 3.0 08/23/16 08/23/16 08:49 08:50 Pulse 82 82 B/P 130/68 130/68 Intake and Output 08/22/16 08/22/16 08/23/16 15:00 23:00 07:00 Intake Total 800 ml 680 ml 200 ml Output Total 2500 ml 800 ml 325 ml Balance -1700 ml -120 ml -125 ml ROSE DE LEON Jr, MD Aug 23, 2016 09:17
[2016-08-23 11:05] VITALS: BP 123/68
--- NOTE | 2016-08-23 11:30 | RAD ---
Chest, 2 views, 08/23/2016: History: Congestive heart failure Comparison is made to a study from 08/21/2016. A left-sided transvenous pacemaker with [address]. The heart is mildly enlarged. The pulmonary vascularity is normal. Emphysematous change is evident in the upper lobes. Mildly prominent basilar opacities are probably due to scarring. No new pulmonary abnormality is seen. There is unchanged blunting of the right lateral costophrenic angle, probably due to scarring. The lateral view demonstrates no significant volume of pleural fluid. Mild spurring is present in the spine. IMPRESSION: 1. Mild cardiomegaly. 2. Emphysema with mild bibasilar scarring. 3. No acute abnormality is detected.
[2016-08-23] MEDS ORDERED: VANCOMYCIN PER PHARMACY MC PRN (13:30)
[2016-08-23] MEDS ORDERED: VANCOMYCIN 2 GM in IV NORMAL SALINE 500ML 500 ML IV ONE (14:00)
[2016-08-23 14:45] VITALS: BP 110/61
[2016-08-23 19:35] VITALS: BP 111/65
[2016-08-23] MEDS: LEVOTHYROXINE 75 MCG TABLET PO SCH (20:42)
[2016-08-23] MEDS: ASPIRIN 81 MG TAB.CHEW PO SCH (20:42)
[2016-08-23] MEDS: POTASSIUM CHLORIDE 10 MEQ CAPSULE.ER. PO SCH (20:42)
[2016-08-23] MEDS: MONTELUKAST 10 MG TABLET. PO SCH (20:42)
[2016-08-23 22:50] VITALS: BP 142/68
[2016-08-24 00:08] LABS: HEMOGLOBIN A1C 6.5 % (4.8-5.6)
--- NOTE | 2016-08-24 02:49 | PN ---
DATE: 08/23/2016 SUBJECTIVE: The patient is resting, slightly propped up in bed, in no apparent respiratory distress. He is awake, alert. On questioning him, he is feeling generally better. He lost another 11 pounds. Denied any chest pain. He has been up and about. OBJECTIVE: GENERAL: When I examined him, he looked well and was clearly in no apparent respiratory distress. VITAL SIGNS: His heart rate was 80, blood pressure 123/68, temperature was 97.9, respiratory rate was 20, and oxygen saturation was 95% on 3 liters of oxygen. HEAD, EYES, EARS, NOSE AND THROAT: Showed normocephalic, atraumatic. NECK: Supple. HEART: Showed normal first and second heart sounds. No gallop, rub or murmur. CHEST: Shows central trachea, equally reduced expansion, reduced air entry, vesicular sounds with scattered rhonchi. I could not appreciate any crepitation. ABDOMEN: Distended, soft, nontender. NEUROLOGIC: He is awake, alert, responding appropriately. Cranial nerves intact. He moves extremities without difficulty, ambulates with a walker. His intake over the last 24-hour was 1680, output was 3625. LABORATORY DATA: Showed a white cell count of 9200, hemoglobin 13.9, hematocrit 42, MCV 86 and platelet count 217,000. His chemistry showed a serum sodium 141, potassium 4, chloride 99, bicarbonate 35, anion gap of 7, BUN 34, creatinine was 1.5, his glucose is 186 and calcium was 9.5. So far, all his blood and sputum cultures are still pending. His chest x-ray showed that he has mild cardiomegaly and emphysema scarring, no acute abnormalities detected. ASSESSMENT: 1. Acute on chronic congestive heart failure, both systolic and diastolic, currently on IV Lasix. 2. Community-acquired pneumonia. 3. Chronic obstructive pulmonary disease exacerbation. 4. Type 2 diabetes mellitus for which he is on metformin and that was held. He is now on sliding scale insulin before meals. 5. Hypothyroidism for which he is on 75 mcg of Synthroid once a day. PLAN: My plan is to cut down on his steroids to twice a day and meanwhile, continue with all other medications. Repeat his labs tomorrow and decide on further management accordingly. JOHNATHAN MCKEON MD DR: Rosalio JOB#: [id number] / [id number]
[2016-08-24 05:28] VITALS: BP 124/69
[2016-08-24] MEDS: IPRATRPIUM/ALBUTEROL 0.5/2.5MG 3 ML NEBU. NEB SCH ×3 (05:55→15:09)
[2016-08-24 06:42] LABS: BASO % 0 % (0-3); EOS % 0 % (0-3); HEMATOCRIT 41.7 % (39.0-53.0); HEMOGLOBIN 13.7 g/dL (13.0-17.5); LYMPH # 0.7 x10^3/uL (1.0-4.8); LYMPH % 4 % (24-48); MEAN CORPUSCULAR HEMOGLOBIN 28 pg (25-35); MEAN CORPUSCULAR HGB CONC 33 g/dL (31-37); MEAN CORPUSCULAR VOLUME 87 fL (79-100); MONO # 0.9 x10^3/uL (0.0-1.1); MONO % 5 % (0-9); NEUT # 17.6 x10^3uL (1.8-7.7); NEUT % 91 % (31-73); PLATELET COUNT 230 x10^3/uL (140-400); RED BLOOD COUNT 4.81 x10^6/uL (4.30-5.70); WHITE BLOOD COUNT 19.3 x10^3/uL (4.0-11.0)
[2016-08-24 07:05] LABS: ALBUMIN 3.1 g/dL (3.4-5.0); ALBUMIN/GLOBULIN RATIO 0.7 (1.0-1.7); CALCIUM 9.5 mg/dL (8.5-10.1); CREATININE 1.3 mg/dL (0.7-1.3); GFR 53.8; TOTAL BILIRUBIN 0.7 mg/dL (0.2-1.0); TOTAL PROTEIN 7.5 g/dL (6.4-8.2)
[2016-08-24 08:23] LABS: % BANDS 1 % (0-9); % LYMPHS 8 % (24-48); % METAS 1 % (0-0); % MONOS 4 % (0-10); % SEGS 86 % (35-66)
[2016-08-24] MEDS: ALLOPURINOL 300 MG TABLET. PO SCH (08:23)
[2016-08-24] MEDS: SACUBITRIL/VALSARTAN 24/26MG TABLET. PO SCH (08:23)
[2016-08-24 08:24] LABS: PLATELET CLUMP PRESENT; PLT ESTIMATE ADEQUATE (ADEQUATE)
[2016-08-24] MEDS: GLIMEPIRIDE 2 MG TABLET PO SCH (08:24)
[2016-08-24] MEDS: CALCIUM CARB/VIT D3 500/200 TABLET PO SCH (08:24)
[2016-08-24] MEDS: PANTOPRAZOLE 40 MG TABLET. PO SCH (08:24)
[2016-08-24] MEDS: GUAIFENESIN ER 600 MG TABLET.ER PO SCH (08:24)
[2016-08-24] MEDS: FERROUS SULFATE 325 MG TABLET PO SCH (08:24)
[2016-08-24] MEDS: METOPROLOL SUCC 24HR ER 25 MG TAB.ER.24H. PO SCH (08:24)
[2016-08-24 08:25] LABS: ANISOCYTOSIS SLIGHT
[2016-08-24] MEDS: FUROSEMIDE 40 MG/4 ML VIAL IVP SCH (08:25)
[2016-08-24] MEDS: methylPREDNISolone SOD SUCC PF 40 MG/ML VIAL. IV SCH ×2 (08:25→13:38)
[2016-08-24] MEDS: CIPROFLOXACIN 400MG PREMIX 200 ML IV SCH (08:28)
[2016-08-24] MEDS: INSULIN ASPART 300 UNITS/3 ML INSULN.PEN SQ SCH ×2 (08:42→12:01)
[2016-08-24] MEDS ORDERED: METFORMIN 500 MG TABLET. PO SCH ×2 (09:00→17:00)
--- NOTE | 2016-08-24 09:36 | PDOC ---
PROGRESS NOTES Diagnosis DIAGNOSIS 1. Acute CHF, combined systolic and diastolic, improving 2. Nonischemic cardiomyopathy 3. CAD, mild 4. Persistent cardiomyopathy 5. Essential hypertension 6. Hyperlipidemia 7. Pneumonia 8. COPD 9. DMII 10. Obesity Assessment Mr. Wilkerson is doing relatively well this morning. He continues to diurese appropriately, and is down over 3 L since admission. I do note that his renal function has been stable. The patient reports that he feels back to his baseline. He has not had any symptoms concerning for angina. I have taken the liberty of switching the patient to Lasix 40 mg PO daily. I will have him follow up with us in our office next week where his diuretic dose may be adjusted further. I do note that he is not on chronic anticoagulation at the present time due to prior bleeding with rivaroxaban. This may need to be addressed in the future. 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 I agree with continuing the rest of his medications as prescribed. Subjective Mr. Wilkerson is doing well this morning. He reports that his breathing continues to improve and he is back to his baseline. He denies any chest pain, palpitations, or lightheadedness. Objective Vital Signs Date Time Temp Pulse Resp B/P Pulse Ox O2 Delivery O2 Flow Rate FiO2 08/24/16 08:24 80 124/69 08/24/16 05:57 96 triilogy 3.0 08/24/16 05:28 97.4 20 Intake and Output 08/24/16 07:00 Intake Total 2537.23 ml Output Total 1475 ml Balance 1062.23 ml Intake Oral 1630 ml IV Total 907.23 ml Output Urine Total 1475 ml # Bowel Movements 1 Physical Exam General: AAO X 3, no apparent distress HEENT: Normal Neck: Supple, no thyromegaly, no JVD Lungs: CTAB, mild wheezing, no crackles Heart: Irregularly irregular, variable S1, no significant murmurs, rubs, or gallops. Ext: No significant edema. Abd: Soft, nontender to palpation, + BS. Neuro: Grossly intact with no focal deficits. Review of Relevant I have reviewed the following items dyana (where applicable) has been applied. Labs Laboratory Tests Test 08/22/16 11:35 08/22/16 16:45 08/22/16 21:12 08/23/16 06:03 Glucose (Fingerstick) 259mg/dL (70-99) 141mg/dL (70-99) 258mg/dL (70-99) Sodium Level 141mmol/L (136-145) Potassium Level 4.0mmol/L (3.5-5.1) Chloride Level 99mmol/L (98-107) Carbon Dioxide Level 35mmol/L (21-32) Anion Gap 7 (6-14) Blood Urea Nitrogen 34mg/dL (8-26) Creatinine 1.5mg/dL (0.7-1.3) Estimated GFR (Cockcroft-Gault) 45.6 Glucose Level 186mg/dL (70-99) Hemoglobin A1c 6.5% (4.8-5.6) Calcium Level 9.5mg/dL (8.5-10.1) Thyroid Stimulating Hormone (TSH) 0.315uIU/mL (0.358-3.740) Test 08/23/16 07:43 08/23/16 11:33 08/23/16 16:38 08/23/16 19:45 Glucose (Fingerstick) 184mg/dL (70-99) 286mg/dL (70-99) 141mg/dL (70-99) 247mg/dL (70-99) Test 08/24/16 06:08 08/24/16 07:30 White Blood Count 19.3x10^3/uL (4.0-11.0) Red Blood Count 4.81x10^6/uL (4.30-5.70) Hemoglobin 13.7g/dL (13.0-17.5) Hematocrit 41.7% (39.0-53.0) Mean Corpuscular Volume 87fL (79-100) Mean Corpuscular Hemoglobin 28pg (25-35) Mean Corpuscular Hemoglobin Concent 33g/dL (31-37) Red Cell Distribution Width 16.0% (11.5-14.5) Platelet Count 230x10^3/uL (140-400) Neutrophils (%) (Auto) 91% (31-73) Lymphocytes (%) (Auto) 4% (24-48) Monocytes (%) (Auto) 5% (0-9) Eosinophils (%) (Auto) 0% (0-3) Basophils (%) (Auto) 0% (0-3) Neutrophils # (Auto) 17.6x10^3uL (1.8-7.7) Lymphocytes # (Auto) 0.7x10^3/uL (1.0-4.8) Monocytes # (Auto) 0.9x10^3/uL (0.0-1.1) Eosinophils # (Auto) 0.0x10^3/uL (0.0-0.7) Basophils # (Auto) 0.0x10^3/uL (0.0-0.2) Segmented Neutrophils % 86% (35-66) Band Neutrophils % 1% (0-9) Lymphocytes % 8% (24-48) Monocytes % 4% (0-10) Metamyelocytes % 1% (0-0) Platelet Estimate Adequate (ADEQUATE) Platelet Clumps, EDTA Present Large Platelets Occ Giant Platelets Occ Anisocytosis Slight Sodium Level 143mmol/L (136-145) Potassium Level 4.0mmol/L (3.5-5.1) Chloride Level 102mmol/L (98-107) Carbon Dioxide Level 37mmol/L (21-32) Anion Gap 4 (6-14) Blood Urea Nitrogen 34mg/dL (8-26) Creatinine 1.3mg/dL (0.7-1.3) Estimated GFR (Cockcroft-Gault) 53.8 BUN/Creatinine Ratio 26 (6-20) Glucose Level 157mg/dL (70-99) Calcium Level 9.5mg/dL (8.5-10.1) Total Bilirubin 0.7mg/dL (0.2-1.0) Aspartate Amino Transf (AST/SGOT) 18U/L (15-37) Alanine Aminotransferase (ALT/SGPT) 30U/L (16-63) Alkaline Phosphatase 68U/L (46-116) Total Protein 7.5g/dL (6.4-8.2) Albumin 3.1g/dL (3.4-5.0) Albumin/Globulin Ratio 0.7 (1.0-1.7) Glucose (Fingerstick) 155mg/dL (70-99) Microbiology 08/21/16 Blood Culture - Preliminary, Resulted NO GROWTH AFTER 2 DAYS 08/21/16 Gram Stain - Final, Complete Medications Current Medications Acetaminophen (Tylenol) 650 mg PRN Q6HRS PRN PO Headaches, Temp > 101.5F; Start 08/21/16 at 11:45; Stop 08/21/16 at 13:10; Status DC Ondansetron HCl (Zofran) 4 mg PRN Q8HRS PRN IV NAUSEA/VOMITING; Start 08/21/16 at 11:45 Albuterol/ Ipratropium (Duoneb) 3 ml RTQID NEB ; Start 08/21/16 at 12:00; Stop 08/21/16 at 16:19; Status DC Furosemide (Lasix) 40 mg BID IVP Last administered on 08/21/16 19:28; Start at 13:00; Stop 08/22/16 at 08:07; Status DC Acetaminophen (Tylenol) 650 mg PRN Q6HRS PRN PO PAIN; Start 08/21/16 at 12:45 Allopurinol (Zyloprim) 300 mg DAILY PO Last administered on 08/24/16 08:23; Start 08/22/16 at 09:00 Aspirin (Children'S Aspirin) 81 mg QHS PO Last administered on 08/23/16 20:42 ; Start 08/21/16 at 21:00 Ferrous Sulfate (Feosol) 325 mg BID PO Last administered on 08/24/16 08:24; Start 08/21/16 at 21:00 Glimepiride (Amaryl) 2 mg DAILY PO Last administered on 08/24/16 08:24; Start 08/22/16 at 09:00 Guaifenesin (Mucinex Er) 600 mg BID PO Last administered on 08/24/16 08:24; Start 08/21/16 at 21:00 Montelukast Sodium (Singulair) 10 mg QHS PO Last administered on 08/23/16 20: 42; Start 08/21/16 at 21:00 Sacubitril/ Valsartan (Entresto 24 Mg-26 Mg) 1 tab BID PO Last administered on 08/24/16 08:23; Start 08/21/16 at 21:00 Calcium/Vitamin D (Oscal D 500mg/ 200uts) 1 tab DAILY PO Last administered on 08:24; Start 08/22/16 at 09:00 Levothyroxine Sodium (Synthroid) 75 mcg 20 PO Last administered on 08/23/16 20 :42; Start 08/22/16 at 20:00 Metformin HCl (Glucophage) 1,000 mg DAILY PO Last administered on 08/23/16 08: 50; Start 08/22/16 at 09:00; Stop 08/23/16 at 09:10; Status DC Metformin HCl (Glucophage) 500 mg DAILYBFRSUP PO Last administered on 17:14; Start 08/21/16 at 17:00; Stop 08/23/16 at 09:10; Status DC Pantoprazole Sodium (Protonix) 40 mg DAILY PO Last administered on 08/24/16 08 :24; Start 08/22/16 at 09:00 Potassium Chloride (Micro-K) 10 meq HS PO Last administered on 08/23/16 20:42 ; Start 08/21/16 at 21:00 Metoprolol Tartrate 12.5 mg 12.5 mg BID PO Last administered on 08/22/16 08:27 ; Start 08/21/16 at 21:00; Stop 08/22/16 at 13:18; Status DC Ciprofloxacin Lactate (Cipro 400mg Premix) 200 ml @ 200 mls/hr Q12HR IV Last administered on 08/24/16 08:28; Start 08/21/16 at 21:00 Methylprednisolone Sodium Succinate (Solu-Medrol 40mg Vial) 40 mg Q8HRS IV Last administered on 08/23/16 05:31; Start 08/21/16 at 22:00; Stop 08/23/16 at 13:26; Status DC Albuterol/ Ipratropium (Duoneb) 3 ml RTQID NEB Last administered on 08/24/16 05:55; Start 08/21/16 at 16:00 Albuterol Sulfate (Ventolin) 2.5 mg PRN Q2HR PRN NEB SHORTNESS OF BREATH; Start 08/21/16 at 15:30 Furosemide (Lasix) 40 mg [id number] IVP Last administered on 08/24/16 08:25; Start 08/22/16 at 09:00; Stop 08/24/16 at 09:22; Status DC Metoprolol Succinate (Toprol Xl) 25 mg DAILY PO Last administered on 08/24/16 08:24; Start 08/23/16 at 09:00 Insulin Aspart (Novolog) 0-7 UNITS TIDAC SQ Last administered on 08/24/16 08: 42; Start 08/22/16 at 16:30 Dextrose 12.5 gm PRN Q15MIN PRN IV SEE COMMENTS; Start 08/22/16 at 15:00 Methylprednisolone Sodium Succinate (Solu-Medrol 40mg Vial) 40 mg [id number] IV Last administered on 08/24/16 08:25; Start 08/23/16 at 14:00 Vancomycin HCl 1 each 1 each PRN DAILY PRN MC SEE COMMENTS Last administered on 08/23/16 14:21; Start 08/23/16 at 13:30 Vancomycin HCl 2 gm/Sodium Chloride 500 ml @ 250 mls/hr 1X ONCE IV Last administered on 08/23/16 14:07; Start 08/23/16 at 14:00; Stop 08/23/16 at 15:59 ; Status DC Vancomycin HCl/ Sodium Chloride (Iv Sodium Chloride 0.9% 500ml) 500 ml @ 250 mls/hr Q24H IV ; Start 08/24/16 at 14:00 Vancomycin HCl 1 each 1X ONCE MC ; Start 08/25/16 at 13:30; Stop 08/25/16 at 13: 31 Metformin HCl (Glucophage) 1,000 mg DAILYWBKFT PO Last administered on 09:24; Start 08/24/16 at 09:00 Metformin HCl (Glucophage) 500 mg DAILYBFRSUP PO ; Start 08/24/16 at 17:00 Furosemide (Lasix) 40 mg DAILY PO ; Start 08/25/16 at 09:00; Status UNV Active Scripts Active Prednisone 50 Mg Tablet 1 Tab PO DAILY Montelukast Sodium Tablet (Montelukast Sodium) 10 Mg Tablet 10 Mg PO QHS [Ipratropium/Albuterol Sulfate] 3 ML Nebu 3 Ml NEB Q8HRS Reported Ferrous Sulfate 325 Mg Tablet 1 Tab PO BID Entresto 24 mg-26 mg Tablet (Sacubitril/Valsartan) 1 Each Tablet 1 Each PO BID Calcium + Vitamin D Tablet (Calcium Carbonate/Vitamin D3) 1 Each Tablet 1 Each PO DAILY Vitamin C (Ascorbic Acid) 1,000 Mg Tablet 1,000 Mg PO DAILY Prednisone 10 Mg Tablet 10 Mg PO DAILY 40mg for 2 days 30mg for 2 days then 20mg dose daily as maintenance dosage Mucinex (Guaifenesin) 600 Mg Tablet.er 600 Mg PO BID LAST DOSE: TODAY AM NEXT DOSE: TON PM Multi-Vitamin Daily (Multivitamin) 1 Each Tablet 2 Each PO DAILY LAST DOSE: TODAY AM NEXT DOSE: TOMORROW AM Glimepiride 2 Mg Tablet 2 Mg PO DAILY LAST DOSE: TODAY AM NEXT DOSE: TOMORROW AM Omeprazole 20 Mg Tablet.dr 40 Mg PO DAILY LAST DOSE: TODAY AM NEXT DOSE: TOMORROW AM BEFORE BREAKFAST Klor-Con 10 (Potassium Chloride) 10 Meq Tablet.er 10 Meq PO HS LAST DOSE: YESTERDAY PM NEXT DOSE: TON PM Bystolic (Nebivolol Hcl) 5 Mg Tablet 2.5 Mg PO HS LAST DOSE: YESTER PM NEXT DOSE: TON PM Aspirin 81 Mg Tab.chew 81 Mg PO QHS LAST DOSE; TODAY AM NEXT DOSE; TOMORROW AM Tylenol (Acetaminophen) 325 Mg Tablet 650 Mg PO Q6HRS PRN LAST DOSE; NEXT DOSE; IF NEEDED Metformin Hcl 1,000 Mg Tablet 1,000 Mg PO DAILYWBKFT LAST DOSE; TODAY BEFORE BREAKFAST NEXT DOSE; TOMORROW BEFORE BREAKFAST Metformin Hcl Er (Metformin Hcl) 500 Mg Tab.er.24 1 Tab WITH DINNER LAST DOSE; YESTERDAY WITH DINNER NEXT DOSE; TODAY WITH DINNER Tirosint (Levothyroxine Sodium) 75 Mcg Capsule 1 Tab HS LAST DOSE; TODAY AM NEXT DOSE; TOMORROW AM BEFORE BREAKFAST Combivent Inhaler (Ipratropium/Albuterol Sulfate) 14.7 Gm Aer.w.adap 2 Puff BID LAST DOSE; TODAY AM NEXT DOSE; TODAY PM Advair 500-50 Diskus (Fluticasone/Salmeterol) 1 Each Disk.w.dev 1 Puff BID LAST DOSE; TODAY AM NEXT DOSE; TODAY PM Allopurinol 300 Mg Tablet 1 Tab DAILY Vitals/I & O Vital Sign - Last 24 Hours 08/23/16 08/23/16 08/23/16 08/23/16 10:00 11:05 14:45 15:52 Temp 97.9 97.8 Pulse 80 80 Resp 20 20 B/P 123/68 110/61 Pulse Ox 96 95 96 97 O2 Delivery Nasal Cannula Nasal Cannula Nasal Cannula Nasal Cannula O2 Flow Rate 3.0 3.0 3.0 3.0 08/23/16 08/23/16 08/23/16 08/23/16 19:35 20:00 20:42 22:14 Temp 97.6 Pulse 103 103 Resp 18 B/P 111/65 111/65 Pulse Ox 96 96 O2 Delivery Nasal Cannula Nasal Cannula Nasal Cannula O2 Flow Rate 3.0 3.0 3.0 08/23/16 08/24/16 08/24/16 08/24/16 22:50 05:28 05:57 08:23 Temp 97.5 97.4 Pulse 90 80 80 Resp 22 20 B/P 142/68 124/69 124/69 Pulse Ox 97 99 96 O2 Delivery Nasal Cannula BiPAP/CPAP triilogy O2 Flow Rate 3.0 3.0 3.0 08/24/16 08:24 Pulse 80 B/P 124/69 Intake and Output 08/23/16 08/23/16 08/24/16 15:00 23:00 07:00 Intake Total 480 ml 1607.23 ml 450 ml Output Total 800 ml 675 ml Balance 480 ml 807.23 ml -225 ml ADAN GARNER MD Aug 24, 2016 09:36
[2016-08-24 10:34] VITALS: BP 122/67
[2016-08-24] MEDS ORDERED: CIPR500T PO (13:43)
[2016-08-24] MEDS ORDERED: DOXY100C2 PO (13:43)
[2016-08-24] MEDS ORDERED: VANCOMYCIN 1.5 GM in IV NORMAL SALINE 500ML 500 ML IV SCH (14:00)
[2016-08-24 14:26] VITALS: BP 132/65
--- NOTE | 2016-08-24 20:32 | DS ---
DATE OF DISCHARGE: 08/24/2016 HOSPITAL COURSE: The patient is resting slightly propped up in bed, in no apparent distress. On questioning him, he stated he is feeling much better. He is back to baseline, lost a lot of weight. All the swelling of his legs has largely subsided. The cough, chest tightness, wheezing has mostly subsided. He remained afebrile throughout his stay. He did grow gram-positive cocci coagulase negative Staphylococcus species in 1 out of 4 bottles most likely contaminant; however, his sputum culture showed growth of both gram-positive cocci and gram-negative cocci. PHYSICAL EXAMINATION: GENERAL: When I examined him today, he was sitting slightly propped up in bed, in no apparent respiratory distress. There was no pallor, jaundice or cyanosis. No lymphadenopathy or thyromegaly. No jugular venous distension. No lower limb edema. VITAL SIGNS: His heart rate was 80, blood pressure 124/69, temperature was 97.4, respiratory rate 20, and oxygen saturation was 99% on 3 liters of oxygen. HEAD, EYES, EARS, NOSE AND THROAT: Showed normocephalic, atraumatic. NECK: Supple. HEART: Showed normal first and second heart sounds with no gallop, rub or murmur. CHEST: Showed central trachea, equally reduced expansion, reduced air entry, vesicular sounds, a few scattered rhonchi bilaterally. I could not appreciate any crepitation. ABDOMEN: Distended, soft, nontender. NEUROLOGIC: He is awake, alert, responding appropriately. Cranial nerves intact. He moves extremities without difficulty, ambulates without assistance or assistive devices. His intake over the last 24-hour was 1680, output was 3625. LABORATORY DATA: Her lab work this morning showed a white cell count of 19,300, hemoglobin 13.7, hematocrit 41.7, MCV 87 and platelet count 230,000 with a manual differential showed 91% polymorphs, 4% lymphocytes. Serum sodium was 143, potassium 4, chloride 102, bicarbonate 37, anion gap of 4, BUN 34, creatinine 1.3, estimated GFR was 54 mL per minute, his glucose 157, calcium was 9.5. Total bilirubin, AST, ALT, alkaline phosphatase were normal. Total protein was 7.5, albumin was 3.1. DISCHARGE MEDICATIONS: The patient will be discharged on ciprofloxacin 500 mg twice a day for 7 days and doxycycline 100 mg twice a day for 7 days. He should continue on his Tylenol 650 mg every 6 hours, allopurinol 300 mg once a day, ascorbic acid 1000 mg once a day, aspirin 81 mg once a day, calcium carbonate with vitamin D one tablet once a day, ferrous sulfate 325 mg twice a day, Advair Diskus 500/50 one puff twice a day, glimepiride 2 mg twice a day, Mucinex 600 mg twice a day, ipratropium bromide, albuterol inhaler 2 puffs 4 times a day, metformin 500 mg with dinner, metformin 1000 mg with breakfast, Singulair 10 mg at bedtime, multivitamin 1 tablet once a day, nebivolol for Bystolic 2.5 mg once a day, omeprazole 40 mg once a day, potassium chloride 10 mEq once a day, prednisone tapering course and Entresto 24 one tablet twice a day. FINAL DISCHARGE DIAGNOSES: Acute on chronic combined systolic and diastolic congestive heart failure, improving; nonischemic cardiomyopathy, chronic obstructive pulmonary disease exacerbation, community-acquired pneumonia, hyperlipidemia, hypertension, morbid obesity. JOHNATHAN MCKEON MD DR: CRISTIANE/rhianna JOB#: [id number] / [id number]
[2016-08-24] MEDS ORDERED: CIPROFLOXACIN HCL 500 MG TABLET PO SCH (21:00)
[2016-08-25] MEDS ORDERED: FUROSEMIDE 40 MG TABLET PO SCH (09:00)
== END 2016-08-24 16:41 | disposition home or self-care (01) | DRG 177 ==
LOC: 1 SOUTH 11:12
PROVIDERS: ADMIT Internal Medicine; ATTEND Internal Medicine
PROC: 5A09357 Assistance with Respiratory Ventilation, Less than 24 Consecutive Hours, Continuous Positive Airway Pressure (ICD-10-PCS; principal; 2016-08-21)
DX: J15.6 Pneumonia due to other Gram-negative bacteria (principal); J96.20 Acute and chronic respiratory failure, unspecified whether with hypoxia or hypercapnia; I50.43 Acute on chronic combined systolic (congestive) and diastolic (congestive) heart failure; I13.0 Hypertensive heart and chronic kidney disease with heart failure and stage 1 through stage 4 chronic kidney disease, or unspecified chronic kidney disease; I42.0 Dilated cardiomyopathy; I48.1 Persistent atrial fibrillation; J44.0 Chronic obstructive pulmonary disease with (acute) lower respiratory infection; J44.1 Chronic obstructive pulmonary disease with (acute) exacerbation; J15.9 Unspecified bacterial pneumonia; D63.8 Anemia in other chronic diseases classified elsewhere; E03.9 Hypothyroidism, unspecified; E11.22 Type 2 diabetes mellitus with diabetic chronic kidney disease; E66.01 Morbid (severe) obesity due to excess calories; E78.00 Pure hypercholesterolemia, unspecified; E78.5 Hyperlipidemia, unspecified; F17.200 Nicotine dependence, unspecified, uncomplicated; I25.10 Atherosclerotic heart disease of native coronary artery without angina pectoris; I25.5 Ischemic cardiomyopathy; F17.201 Nicotine dependence, unspecified, in remission; E88.09 Other disorders of plasma-protein metabolism, not elsewhere classified; I27.2 Other secondary pulmonary hypertension; I48.0 Paroxysmal atrial fibrillation; M10.00 Idiopathic gout, unspecified site; N18.2 Chronic kidney disease, stage 2 (mild); Z79.01 Long term (current) use of anticoagulants; Z87.11 Personal history of peptic ulcer disease; Z95.810 Presence of automatic (implantable) cardiac defibrillator; Z99.81 Dependence on supplemental oxygen
CPT/HCPCS: 36415; 71020; 80048; 80053; 82947; 83036; 83735; 83880; 84443; 84484; 85007; 85027; 87040; 87070; 87205; 93005; 94640; 94760; J0744; J1815; J1940; J2920; J3370; J7040; J7620

== ENCOUNTER → 2017-02-25 | Outpatient (CLI) | payer MEDICARE ==
[~2017-02-25] MED LIST changes: +ASCO10002 PO; +ASPI-630 PO; -ASPI81TA2 PO; +CALC-98 PO; +CIPR500T PO; +DOXY100C2 PO; -GUAI600T38 PO; +GUAI600T47 PO; -OMEP20TA PO; +OMEP20TA8 PO; -ROFL500T; +ROFL500T7; +SACU1TAB PO
--- NOTE | 2017-02-25 13:03 | RAD ---
Chest x-ray Indication: Acute respiratory failure, hypoxia, hypercapnia Technique: PA and lateral views of the chest Comparison: Chest x-ray from 08/23/2016 Impression: Stable position of left chest wall cardiac device with its leads projecting over the heart. Stable mild cardiomegaly. Lungs are hyperinflated with diffuse emphysematous changes. Bilateral lower lobe predominant prominent interstitial markings. No pneumothorax or pleural effusion. Degenerative changes in the spine. Otherwise, visualized bony thorax is within normal limits. Impression: 1. Findings of COPD. 2. Stable bilateral lower lung predominant interstitial markings which may represent scarring.
== END | disposition home or self-care (01) ==
LOC: DXRADRC 12:14
PROVIDERS: ATTEND Nurse Practitioner
DX: J44.9 Chronic obstructive pulmonary disease, unspecified (principal); I51.7 Cardiomegaly; J96.20 Acute and chronic respiratory failure, unspecified whether with hypoxia or hypercapnia; M47.899 Other spondylosis, site unspecified
CPT/HCPCS: 71020

== ENCOUNTER → 2017-09-16 | Outpatient (CLI) | payer MEDICARE ==
[~2017-09-16] MED LIST changes: -FERR-26 PO; +FERR325T14 PO
[2017-09-16 09:11] LABS: BASO # 0.1 x10^3/uL (0.0-0.2); BASO % 1 % (0-3); EOS # 0.1 x10^3/uL (0.0-0.7); EOS % 1 % (0-3); HEMATOCRIT 39.5 % (39.0-53.0); LYMPH # 1.6 x10^3/uL (1.0-4.8); LYMPH % 15 % (24-48); MEAN CORPUSCULAR HEMOGLOBIN 28 pg (25-35); MEAN CORPUSCULAR HGB CONC 33 g/dL (31-37); MEAN CORPUSCULAR VOLUME 86 fL (79-100); MONO # 0.8 x10^3/uL (0.0-1.1); MONO % 8 % (0-9); NEUT % 75 % (31-73); PLATELET COUNT 210 x10^3/uL (140-400); RED BLOOD COUNT 4.59 x10^6/uL (4.30-5.70); RED CELL DISTRIBUTION WIDTH 16.7 % (11.5-14.5); WHITE BLOOD COUNT 10.6 x10^3/uL (4.0-11.0)
[2017-09-16 09:29] LABS: ALBUMIN 3.2 g/dL (3.4-5.0); ALBUMIN/GLOBULIN RATIO 0.8 (1.0-1.7); CALCIUM 9.1 mg/dL (8.5-10.1); CREATININE 1.4 mg/dL (0.7-1.3); GFR 49.3; POTASSIUM 3.7 mmol/L (3.5-5.1); TOTAL BILIRUBIN 0.7 mg/dL (0.2-1.0); TOTAL PROTEIN 7.1 g/dL (6.4-8.2)
[2017-09-16 13:46] LABS: FREE T4 1.21 ng/dL (0.76-1.46); THYROID STIM HORMONE (TSH) 3.747 uIU/mL (0.358-3.740)
[2017-09-17 05:13] LABS: HEMOGLOBIN A1C 6.4 % (4.8-5.6)
== END | disposition home or self-care (01) ==
LOC: LAB 08:32
PROVIDERS: ATTEND Internal Medicine
DX: E11.9 Type 2 diabetes mellitus without complications (principal); E03.9 Hypothyroidism, unspecified; D63.8 Anemia in other chronic diseases classified elsewhere
CPT/HCPCS: 36415; 80053; 80061; 83036; 84439; 84443; 85025

== ENCOUNTER → 2018-02-12 | Outpatient (CLI) | payer MEDICARE ==
[2018-02-01 08:50] VITALS: BP 123/74
[~2018-02-12] MED LIST changes: +FURO40TA4 PO; +IPRA3AMP29 NEB; +IPRA4AER INH; -METF10002 PO; +METF10007 PO; +METO5TAB4 PO; +ROFL500T7 PO; -SPIR25TA3; +SPIR25TA5
[2018-02-12 12:38] LABS: CALCIUM 9.6 mg/dL (8.5-10.1); CREATININE 1.6 mg/dL (0.7-1.3); GFR 42.2; MAGNESIUM 1.9 mg/dL (1.8-2.4); POTASSIUM 3.9 mmol/L (3.5-5.1)
== END | disposition home or self-care (01) ==
LOC: LAB 11:41
DX: I13.0 Hypertensive heart and chronic kidney disease with heart failure and stage 1 through stage 4 chronic kidney disease, or unspecified chronic kidney disease (principal); E11.22 Type 2 diabetes mellitus with diabetic chronic kidney disease; I50.9 Heart failure, unspecified; N18.2 Chronic kidney disease, stage 2 (mild); E55.9 Vitamin D deficiency, unspecified; E78.00 Pure hypercholesterolemia, unspecified; E66.01 Morbid (severe) obesity due to excess calories; D63.1 Anemia in chronic kidney disease; E03.9 Hypothyroidism, unspecified; J44.9 Chronic obstructive pulmonary disease, unspecified; I48.2 Chronic atrial fibrillation; Z87.11 Personal history of peptic ulcer disease; Z87.891 Personal history of nicotine dependence; Z68.32 Body mass index [BMI] 32.0-32.9, adult; Z88.0 Allergy status to penicillin; Z88.8 Allergy status to other drugs, medicaments and biological substances; Z88.7 Allergy status to serum and vaccine
CPT/HCPCS: 36415; 80048; 83735

== ENCOUNTER → 2018-03-17 | Outpatient (CLI) | payer MEDICARE ==
[2018-02-01 08:50] VITALS: BP 123/74
[2018-03-17 12:37] LABS: ALBUMIN 3.1 g/dL (3.4-5.0); ALBUMIN/GLOBULIN RATIO 0.8 (1.0-1.7); CALCIUM 9.4 mg/dL (8.5-10.1); CREATININE 1.6 mg/dL (0.7-1.3); GFR 42.2; POTASSIUM 4.4 mmol/L (3.5-5.1); TOTAL BILIRUBIN 0.9 mg/dL (0.2-1.0); TOTAL PROTEIN 6.9 g/dL (6.4-8.2)
== END | disposition home or self-care (01) ==
LOC: LAB 10:33
PROVIDERS: ATTEND Nurse Practitioner
DX: E78.49 Other hyperlipidemia (principal)
CPT/HCPCS: 36415; 80053; 80061

== ENCOUNTER → 2018-03-17 | Outpatient (CLI) | payer MEDICARE ==
[2018-02-01 08:50] VITALS: BP 123/74
[2018-03-17 12:39] LABS: CALCIUM 9.4 mg/dL (8.5-10.1); CREATININE 1.6 mg/dL (0.7-1.3); GFR 42.2; MAGNESIUM 1.7 mg/dL (1.8-2.4); POTASSIUM 4.4 mmol/L (3.5-5.1)
== END | disposition home or self-care (01) ==
LOC: LAB 10:41
PROVIDERS: ATTEND Nurse Practitioner
DX: E11.22 Type 2 diabetes mellitus with diabetic chronic kidney disease (principal); I13.0 Hypertensive heart and chronic kidney disease with heart failure and stage 1 through stage 4 chronic kidney disease, or unspecified chronic kidney disease; N18.2 Chronic kidney disease, stage 2 (mild); I50.23 Acute on chronic systolic (congestive) heart failure; Z79.84 Long term (current) use of oral hypoglycemic drugs; Z87.891 Personal history of nicotine dependence
CPT/HCPCS: 36415; 80048; 83735